=== PATIENT | female | born 1975 | race Caucasian/White ===

== ENCOUNTER 2019-05-14 19:43 | Emergency (ER) | payer OTHER ==
[~2019-05-14] VITALS: Ht 172.7 cm; Wt 120.6 kg
--- NOTE | 2019-05-14 20:07 | PHYS DOC ---
Adult General Chief Complaint Chief Complaint: SKIN PROBLEM." I got a shot for strept. throat at [place] on Thu... since then the area has grown more red and larger...." HPI HPI Patient is a 43 year old female who presents with above hx and complaints of increasing area were reviewed and seem to right gluteal cheek skin- area of previous Bicillin injection. Area appears to be a localized arthritis-type reaction. Area is not particularly hot and no striations.. No findings of pus pocket formation. Patient normally healthy. Up-to-date with vaccinations. No recent travel outside the can see area. Normally follows at [place]. Recent diagnosis of streptococcal pharyngitis and received a IM injection of Bicillin reportedly at [place]. Review of Systems Review of Systems Constitutional: Denies fever or chills [] Eyes: Denies change in visual acuity, redness, or eye pain [] HENT: Denies nasal congestion or sore throat [] Respiratory: Denies cough or shortness of breath [] Cardiovascular: No additional information not addressed in HPI [] GI: Denies abdominal pain, nausea, vomiting, bloody stools or diarrhea [] : Denies dysuria or hematuria [] Musculoskeletal: Denies back pain or joint pain [] Integument: Denies rash or skin lesions [. Except findings of right gluteal cheek inflammation at injection site. Neurologic: Denies headache, focal weakness or sensory changes [] Endocrine: Denies polyuria or polydipsia [] All other systems were reviewed and found to be within normal limits, except as documented in this note. Family History Family History Noncontributory Current Medications Current Medications See nursing for home meds Allergies Allergies No known drug allergies Physical Exam Physical Exam Constitutional: Well developed, well nourished, no acute distress, non-toxic juan earance. [] HENT: Normocephalic, atraumatic, bilateral external ears normal, oropharynx moist, no oral exudates, nose normal. [] Eyes: PERRLA, EOMI, conjunctiva normal, no discharge. [] Neck: Normal range of motion, no tenderness, supple, no stridor. [] Cardiovascular:Heart rate regular rhythm, no murmur [] Lungs & Thorax: Bilateral breath sounds clear to auscultation [] Abdomen: Bowel sounds normal, soft, no tenderness, no masses, no pulsatile masses. []Obese. Skin: Warm, dry, no erythema, no rash. [] Except findings of right gluteal cheek erythema- 12 x 18 cm. Injection site in center of area of erythema. Back: No tenderness, no CVA tenderness. [] Extremities: No tenderness, no cyanosis, no clubbing, ROM intact, no edema. [] Neurologic: Alert and oriented X 3, normal motor function, normal sensory function, no focal deficits noted. [] Psychologic: Affect normal, judgement normal, mood normal. [] EKG EKG [] Radiology/Procedures Radiology/Procedures [] Course & Med Decision Making Course & Med Decision Making Pertinent Labs and Imaging studies reviewed. (See chart for details) Use local cold compresses of salt water or episome salt and Ice packs as needed. If striations or continue expansion start massage of polysporin 4 x day after compresses and Bactrim DS twice a day. Follow up with primary. Return if any concerns. 1. Localized Antibiotic- PCN injection reaction- Arthus Type reaction Vs Cellulitis 2. Hx. + Strept pharyngitis [] Dragon Disclaimer Dragon Disclaimer This electronic medical record was generated, in whole or in part, using a voice recognition dictation system. Departure Departure: Disposition: 01 HOME/RESIDENCE PRIOR TO ADM Condition: STABLE Referrals: MALISSA NAVA DO (PCP) Scripts Bacitracin/Polymyxin B Sulfate (POLYSPORIN OINTMENT) 28.3 Gm Oint...g. 28.3 GM TP QID for cellulitis, #120 MISC Prov: RUDDY GOMEZ MD 05/14/19 Sulfamethoxazole/Trimethoprim (BACTRIM DS TABLET) 1 Each Tablet 1 TAB PO BID for cellultis for 7 Days, #14 TAB 0 Refills Prov: RUDDY GOMEZ MD 05/14/19 [place] Disclaimer This chart was dictated in whole or in part using Voice Recognition software in a busy, high-work load, and often noisy Emergency Department environment. It may contain unintended and wholly unrecognized errors or omissions. RUDDY GOMEZ MD May 14, 2019 20:06
[2019-05-14 20:19] VITALS: BP 136/59
[2019-05-14] MEDS ORDERED: SULF1TAB24 PO (20:39)
[2019-05-14] MEDS ORDERED: BACI28.34 TP (20:41)
[2019-05-14] MEDS ORDERED: predniSONE 10 MG TABLET PO ONE (21:00)
== END 2019-05-14 21:22 | disposition home or self-care (01) ==
LOC: ER 19:43
DX: T80.89XA Other complications following infusion, transfusion and therapeutic injection, initial encounter (principal); L53.8 Other specified erythematous conditions
CPT/HCPCS: 99283; J7512